=== PATIENT | male | born 1940 | race Caucasian/White ===

== ENCOUNTER 2016-06-27 10:57 | Observation (INO) | payer MEDICARE, OTHER ==
[~2016-06-27] VITALS: Ht 177.8 cm; Wt 91.1 kg
--- NOTE | ~2016-06-27 | EEP ---
Initial Pacemaker Generator Implant Report Demographics Patient Name DEE GARCIA Gender Male Patient Number [id number] Race Visit Number [id number] Ethnicity [employer] ID Room Number 404 Accession Number [id number] Height 175.26 cm Date of 1940 Weight 91 kg Age 76 year(s) BSA 2.07 m Referring Physician King Florencio Sommer MD BMI 29.63 kg/m Implanting Physician King Florencio Sommer MD Date of Study 06/27/2016 Assisting Physician Performing Physician King Florencio Sommer MD The procedure was explained in detail to the patient. Risks, complications and alternative treatments were reviewed. Written consent was obtained. Medications reviewed with patient prior to procedure. Conclusions Implantable Device Summary Summary 1. Successful dual chamber pacemaker implant Recommendations 1. Chest X-ray post-op and in the AM 2. Device check in the AM 3. Follow up with [facility] provider in 5-7 days Complications No complications. Procedure Procedure Type Pacemaker:Initial Insertion (generator and leads), Dual Lead PM Insert A&V Leads Indications Atrial fibrillation, Sick sinus syndrome and Bradycardia. Procedure Description The patient was brought to the electrophysiology laboratory in a fasting state. A baseline ECG was recorded. Surface ECG leads, intracardiac electrograms, blood pressure measurements, and pulse oximety signals were monitored. A grounding pad was placed on the back. A defibrillator was configured to deliver shocks via self-adhesive anterior posterior defibrillator pads. Conscious sedation was administered. The upper chest area was prepped with ChloraPrep. After a three minute dry time the patient was draped in a sterile fashion. 2% Lidocaine with Bupivicaine was used in the infraclavicular area and an incision was made. Blunt dissection down to the area of the Pectoralis Fascia was performed. Subclavian access was obtained and guidewires were placed into the SVC. 2% Lidocaine with Bupivicaine was used inferiorly to the incision. Blunt dissection anterior to the Pectoralis Fascia was used to form the pacemaker pocket. Over one wire, an intravenous sheath and dilator were placed in the superior vena cava under fluoroscopic vision. Through the sheath, the ventricular lead was then placed into the right ventricular apex under fluoroscopic vision and tested. The sheath was removed. The lead was sutured to the Pectoralis fascia using non-absorbable suture. Over the other wire, an intravenous sheath and dilator were placed in to the superior vena cava under fluoroscopic vision. Through the sheath, the atrial lead was then placed in the right atrium under fluoroscopic vision and tested. The sheath was removed. The lead was sutured to the Pectoralis Fascia using non-absorbable sutures. The leads were then connected to the pulse generator and screwed tight. The pocket was irrigated with Ancef. The lead(s) and pulse generator were then placed into the pacemaker pocket. The incision was then closed. It was closed using 2-0 Vicryl for the deep and intermediate layer and 4-0 Vicryl for the subcuticular layer. A sterile dressing was applied. The patient tolerated the procedure well and was returned to the nursing unit in stable condition. Devices and Leads Devices + + + +--------+------+ +--------+ !Identification!Action !Location !Device !Serial!Implant !Comments! ! ! ! !name !# !date ! ! + + + +--------+------+ +--------+ !New implant !Implanted !Left !ROLANDO![id number]!06/27/2016! ! ! ! !Subclavicular!MRI DR ! ! ! ! ! ! ! !L111 ! ! ! ! + + + +--------+------+ +--------+ Leads + + +--------+ +------+ +---------+ !Identification!Action !Location!Lead name !Serial!Implant !Comments ! ! ! ! ! !# !date ! ! + + +--------+ +------+ +---------+ !New implant !Implanted !RV apex !PACER LEAD ![id number]!06/27/2016! ! ! ! ! !INGEVITY ! ! ! ! ! ! ! !MRI 59 CM ! ! ! ! + + +--------+ +------+ +---------+ !New implant !Implanted !RA !PACER LEAD ![id number]!06/27/2016! ! ! ! !septal !INGEVITY ! ! ! ! ! ! ! !MRI 52 CM ! ! ! ! + + +--------+ +------+ +---------+ Leads Measured and Programmed Data +-------+---------+ +---------+ +---------+ + +------ -+ !Lead !Sensing Amplitude !Threshold (V) !Pulse Width (ms) !Impendence!Current! ! !(mV) ! ! !(Ohms) !(mA) ! +-------+---------+ +---------+ +---------+ + +------ -+ ! !Measured !Programmed !Measured !Programmed !Measured !Programmed ! ! ! +-------+---------+ +---------+ +---------+ + +------ -+ !RV apex!17.4 !2.5 !0.4 !3.5 !0.5 !0.5 !575 !0.6 ! +-------+---------+ +---------+ +---------+ + +------ -+ !RA !3.3 !0.5 !0.8 !3.5 !0.5 !0.5 !771 !1.4 ! !septal ! ! ! ! ! ! ! ! ! +-------+---------+ +---------+ +---------+ + +------ -+ Device Programming Bradycardia Zone +-------+--------+--------+--------+ + +------+--------+ !Pacing !Mode !Lower !Upper !Paced AV !Sensed AV !PVARP !VRP (ms)! !Mode !Switch !Rate !Rate !Interval !Interval !(ms) ! ! ! ! !(ppm) !(ppm) !(ms) !(ms) ! ! ! +-------+--------+--------+--------+ + +------+--------+ !DDDR !On !60 !130 !210 !180 !320 !250 ! +-------+--------+--------+--------+ + +------+--------+ Medical History Allergies - No known allergies:. Admission Data Admission Date: 06/27/2016 Admission Time: 14:56 Insurance Payors:Medicare. Hospital Status:Inpatient. Procedure Data Procedure Date:06/27/2016Start:14:34End:15:19 Fluoroscopy Time: 4:06 minutes.Fluoroscopy Dose: 125 mGy. Estimated blood loss:14 ml. Contrast Material - Isovue 370,10 ml. Procedure Medications Order and Administration + + +---------+--------+ !Time !Medication !Dosage !Route ! + + +---------+--------+ !06/27/2016 14:16 !Ancef !2 g !I.V. ! + + +---------+--------+ !06/27/2016 14:26 !Versed !2 mg !I.V. ! + + +---------+--------+ !06/27/2016 14:26 !Fentanyl !50 mcg !I.V. ! + + +---------+--------+ !06/27/2016 14:27 !Sodium Chloride !10 ml !I.V. ! + + +---------+--------+ !06/27/2016 14:37 !Versed !1 mg !I.V. ! + + +---------+--------+ !06/27/2016 14:37 !Fentanyl !50 mcg !I.V. ! + + +---------+--------+ !06/27/2016 14:40 !Oxygen !2 l/min !NC ! + + +---------+--------+ !06/27/2016 14:53 !Versed !1 mg !I.V. ! + + +---------+--------+ Discharge Data Discharge Date: 06/28/2016 Signatures
[~2016-06-27 10:57] MED LIST: ASA CHILDREN'S81 MG PO; COUMADIN4 MG PO; COUMADIN5 MG PO; FENOFIBRATE145 MG PO; FISH OIL 1,4001 EACH PO; MILK OF MAGNESI10 ML PO; OXY IR DPS5 MG PO; TENORMIN DPS50 MG PO; TUMS DPS500 MG PO; TYLENOL DPS325 MG PO; ULTRAM DPS50 MG PO
[2016-06-29] MEDS ORDERED: CRESTOR20 MG PO (12:58)
[2016-06-29] MEDS ORDERED: COUMADIN5 MG PO (12:58)
== END 2016-06-28 11:00 | disposition home or self-care (01) ==
LOC: SSS 10:57 → 4PCU 14:56 → SSS 16:20 → 4PCU 06-28 11:00
PROVIDERS: ADMIT Internal Medicine
PROC: 02H63JZ Insertion of Pacemaker Lead into Right Atrium, Percutaneous Approach (ICD-10-PCS; principal; 2016-06-27)
PROC: 02HK3JZ Insertion of Pacemaker Lead into Right Ventricle, Percutaneous Approach (ICD-10-PCS; principal; 2016-06-27)
PROC: 0JH606Z Insertion of Pacemaker, Dual Chamber into Chest Subcutaneous Tissue and Fascia, Open Approach (ICD-10-PCS; principal; 2016-06-27)
DX: I49.5 Sick sinus syndrome (principal); I71.4 Abdominal aortic aneurysm, without rupture; I25.10 Atherosclerotic heart disease of native coronary artery without angina pectoris; Z95.1 Presence of aortocoronary bypass graft; Z95.2 Presence of prosthetic heart valve; I48.91 Unspecified atrial fibrillation; Z79.01 Long term (current) use of anticoagulants; Z79.899 Other long term (current) drug therapy; Z79.82 Long term (current) use of aspirin